=== PATIENT | male | born 1970 | race Two or more races ===

== ENCOUNTER 2020-05-20 10:58 | Emergency (ER) | payer MEDICAID, OTHER ==
[~2020-05-20] VITALS: Ht 167.6 cm; Wt 90.7 kg
[2020-05-20 11:01] VITALS: BP 125/93
[2020-05-20] MEDS ORDERED: DexAMETHasone SOD PHOS 10MG/1ML VIAL INJ IM ONE (11:45)
[2020-05-20] MEDS ORDERED: cefTRIAXone SOD 1,000 MG VL IM ONE (11:45)
== END 2020-05-20 12:31 | disposition home or self-care (01) ==
LOC: ER 10:58
DX: U07.1 COVID-19 (principal); J12.82 Pneumonia due to coronavirus disease 2019; E11.9 Type 2 diabetes mellitus without complications; F17.210 Nicotine dependence, cigarettes, uncomplicated; Z90.49 Acquired absence of other specified parts of digestive tract
CPT/HCPCS: 36415; 71045; 87426; 96372; 99284; J0696; J1100

== ENCOUNTER 2020-06-08 18:25 | Inpatient (IN) | payer MEDICAID ==
[~2020-06-08] VITALS: Ht 167.6 cm; Wt 116.8 kg
[2020-06-08] MEDS ORDERED: ACETAMINOPHEN 500 MG TAB PO ONE (18:45)
[2020-06-08 18:48] VITALS: BP 101/49
[2020-06-08 18:52] LABS: Basophils # (auto) 0.1 10 ^3/uL (0-0.2); Eosinophils # (auto) 0 10 ^3/uL (0-0.8); Eosinophils % (auto) 0.1 % (0.0-7.0); Hematocrit 39.9 % (41.0-53.0); Hemoglobin 13.2 g/dL (13.5-17.5); Lymphocytes # (auto) 1.3 10 ^3/uL (0.4-5.4); Mean Corpuscular Hemoglobin 28.2 pg (28.0-32.0); Mean Corpuscular Hgb Conc. 33.1 g/dL (32.0-36.0); Mean Corpuscular Volume 85.2 fL (80.0-100.0); Monocytes # (auto) 0.7 10 ^3/uL (0-1.3); Monocytes % (auto) 6.7 % (0.0-12.0); Neutrophils # (auto) 7.8 10 ^3/uL (1.6-8.6); Neutrophils % (auto) 79.2 % (37.0-80.0); Nucleated Red Blood Cells % 0.1 %; Platelet Count (auto) 284 10^3/uL (140-450); Red Blood Cells 4.68 10^6/uL (4.5-5.90); Red Cell Distribution Width 15.2 % (11.8-14.3); White Blood Cell 9.8 10^3/uL (4.4-10.8)
[2020-06-08] MEDS ORDERED: LORazepam 2MG/ML-1ML VIAL ONE (18:57)
[2020-06-08] MEDS ORDERED: LORazepam 2MG/ML-1ML VIAL IV ONE (19:00)
[2020-06-08 19:08] LABS: INR 1.12 (0.9-1.15); Partial Thromboplastin Time 29.9 sec (23.0-31.2)
[2020-06-08 19:10] LABS: Albumin 2.5 g/dL (3.4-5.0); Calcium 8.4 mg/dL (8.5-10.1); Potassium 4.7 mmol/L (3.5-5.1)
[2020-06-08 19:14] LABS: BUN/Creatinine Ratio 12.4; Bilirubin, Total 0.7 mg/dL (0.2-1.0); Total Protein 8.6 g/dL (6.4-8.2)
[2020-06-08] MEDS ORDERED: IOHEXOL 350 MG/ML 100ML IJ ONE (19:37)
[2020-06-08 19:40] LABS: Lactic Acid w/Reflex 2.7 mmol/L (0.4-2.0)
[2020-06-08] MEDS ORDERED: SUCCINYLCHOLINE CHLORIDE 20 MG/ML 10ML VIAL IV ONE ×3 (19:52→20:10)
[2020-06-08] MEDS ORDERED: ETOMIDATE (2MG/ML) 20ML VIAL IV ONE ×3 (19:52→20:09)
[2020-06-08] MEDS ORDERED: MIDAZOLAM DRIP 50 mg/50mL 50 ML IV ONE (20:16)
[2020-06-08 20:17] VITALS: BP 176/104
[2020-06-08] MEDS ORDERED: PROPOFOL 100 ML IV ONE (20:20)
[2020-06-08] MEDS: PROPOFOL 100 ML IV SCH (20:30)
[2020-06-08] MEDS: MIDAZOLAM DRIP 50 mg/50mL 50 ML IV SCH (20:45)
[2020-06-08] MEDS ORDERED: PROPOFOL 100 ML IV SCH (20:45)
[2020-06-08] MEDS ORDERED: KETOROLAC TROMETH 30 MG/ML 1ML VIAL IV ONE (21:00)
[2020-06-08] MEDS: NOREPINEPHRINE 8 MG/250ML KIT 250 ML IV SCH (21:30)
[2020-06-08] MEDS ORDERED: DEXTROSE (50%) 50ML SYRG IV PRN (21:30)
[2020-06-08] MEDS ORDERED: ONDANSETRON HCL 4 MG/2 ML VIAL IV PRN (21:30)
[2020-06-08] MEDS ORDERED: NITROGLYCERIN 0.4 MG SL TAB SL PRN (21:30)
[2020-06-08] MEDS ORDERED: MORPHINE SULF INJ 2 MG/ML SYRINGE 1ML IV PRN (21:30)
[2020-06-08] MEDS ORDERED: SODIUM CHLORIDE 0.9% 1,000 ML IV ONE (21:30)
[2020-06-08 21:45] VITALS: BP 86/32
[2020-06-08] MEDS ORDERED: PIPERACILLIN-TAZOB 3.375GM 100 ML IV SCH (22:15)
[2020-06-08] MEDS: ENOXAPARIN SOD 40 MG/0.4 ML SYRINGE SC SCH (22:16)
[2020-06-08] MEDS: ACETAMINOPHEN 650 mg PER 20.3 mL UD GT PRN (22:30)
[2020-06-08 22:47] VITALS: BP 90/48
[2020-06-08] MEDS: FAMOTIDINE (10MG/ML) 2ML VL IV SCH (23:39)
[2020-06-08] MEDS: PIPERACILLIN-TAZOB 3.375GM 100 ML IV SCH (23:39)
[2020-06-08] MEDS: InsuLIN REG 1unit/0.01ml Soln (100units/ml) SC SCH (23:49)
[2020-06-08] MEDS: ACCU-CHEK COMFORT CURVE STRIP VI SCH (23:49)
[2020-06-09 02:14] VITALS: BP 100/52
[2020-06-09] MEDS: ACCU-CHEK COMFORT CURVE STRIP VI SCH ×4 (05:50→23:48)
[2020-06-09] MEDS: InsuLIN REG 1unit/0.01ml Soln (100units/ml) SC SCH ×4 (05:58→23:47)
[2020-06-09] MEDS: PIPERACILLIN-TAZOB 3.375GM 100 ML IV SCH ×4 (06:08→23:00)
[2020-06-09 06:37] LABS: Basophils # (auto) 0.1 10 ^3/uL (0-0.2); Eosinophils # (auto) 0 10 ^3/uL (0-0.8); Eosinophils % (auto) 0.4 % (0.0-7.0); Hematocrit 36.8 % (41.0-53.0); Hemoglobin 12.4 g/dL (13.5-17.5); Lymphocytes % (auto) 18.2 % (10.0-50.0); Mean Corpuscular Hemoglobin 28.7 pg (28.0-32.0); Mean Corpuscular Hgb Conc. 33.6 g/dL (32.0-36.0); Mean Corpuscular Volume 85.3 fL (80.0-100.0); Monocytes # (auto) 1.1 10 ^3/uL (0-1.3); Monocytes % (auto) 9.8 % (0.0-12.0); Neutrophils # (auto) 7.7 10 ^3/uL (1.6-8.6); Neutrophils % (auto) 70.6 % (37.0-80.0); Nucleated Red Blood Cells % 0.5 %; Platelet Count (auto) 300 10^3/uL (140-450); Red Blood Cells 4.32 10^6/uL (4.5-5.90); Red Cell Distribution Width 15.8 % (11.8-14.3); White Blood Cell 10.9 10^3/uL (4.4-10.8)
[2020-06-09 06:48] VITALS: BP 109/51
[2020-06-09 06:50] LABS: INR 1.11 (0.9-1.15)
[2020-06-09 06:52] LABS: Potassium 4.5 mmol/L (3.5-5.1)
[2020-06-09 07:00] LABS: Albumin 2.3 g/dL (3.4-5.0); BUN/Creatinine Ratio 16.3; Bilirubin, Total 0.7 mg/dL (0.2-1.0); Calcium 7.9 mg/dL (8.5-10.1); Total Protein 7.8 g/dL (6.4-8.2)
[2020-06-09] MEDS ORDERED: NOREPINEPHRINE 8 MG/250ML KIT 250 ML IV ONE (07:52)
[2020-06-09] MEDS ORDERED: MIDAZOLAM HCL 0 ML IV ONE (07:53)
[2020-06-09] MEDS ORDERED: MIDAZOLAM DRIP 50 mg/50mL 50 ML IV ONE (07:53)
[2020-06-09 10:11] VITALS: BP 111/50
[2020-06-09] MEDS: ENOXAPARIN SOD 40 MG/0.4 ML SYRINGE SC SCH (10:27)
[2020-06-09] MEDS: FAMOTIDINE (10MG/ML) 2ML VL IV SCH ×2 (10:27→21:16)
[2020-06-09 13:58] VITALS: BP 118/70
[2020-06-09] MEDS: ACETAMINOPHEN 650 mg PER 20.3 mL UD GT PRN (15:39)
[2020-06-09 18:20] VITALS: BP 116/67
[2020-06-09] MEDS: MIDAZOLAM DRIP 50 mg/50mL 50 ML IV SCH (19:57)
[2020-06-09] MEDS: PROPOFOL 100 ML IV SCH (19:57)
[2020-06-09] MEDS: NOREPINEPHRINE 8 MG/250ML KIT 250 ML IV SCH (21:16)
[2020-06-09 22:30] VITALS: BP 120/68
[2020-06-10 02:30] VITALS: BP 113/65
[2020-06-10] MEDS: PIPERACILLIN-TAZOB 3.375GM 100 ML IV SCH ×3 (05:09→18:24)
[2020-06-10] MEDS: InsuLIN REG 1unit/0.01ml Soln (100units/ml) SC SCH ×3 (05:54→18:52)
[2020-06-10] MEDS: ACCU-CHEK COMFORT CURVE STRIP VI SCH ×3 (05:55→18:52)
[2020-06-10 06:07] VITALS: BP 111/61
[2020-06-10] MEDS: FAMOTIDINE (10MG/ML) 2ML VL IV SCH ×2 (09:54→22:07)
[2020-06-10] MEDS: DexAMETHasone SOD PHOS 10MG/1ML VIAL INJ IV SCH (09:54)
[2020-06-10] MEDS: ZINC SULFATE 220mg CAP or TAB PO SCH (09:55)
[2020-06-10] MEDS: AZITHROMYCIN 500MG/ 250ML 250 ML IV SCH (09:55)
[2020-06-10] MEDS: CHOLECALCIFEROL (VITD3) 2,000 UNIT CAP/TAB PO SCH (09:56)
[2020-06-10] MEDS: ASCORBIC ACID 1,000 MG TAB PO SCH (09:56)
[2020-06-10 10:00] VITALS: BP 120/72
[2020-06-10] MEDS ORDERED: ENOXAPARIN SOD 60 MG/0.6 ML SYRINGE SC SCH (10:00)
[2020-06-10 13:40] VITALS: BP 110/50
[2020-06-10 15:53] LABS: Basophils # (auto) 0.1 10 ^3/uL (0-0.2); Basophils % (auto) 1.4 % (0.0-2.0); Eosinophils # (auto) 0 10 ^3/uL (0-0.8); Eosinophils % (auto) 0.1 % (0.0-7.0); Hemoglobin 12.2 g/dL (13.5-17.5); Lymphocytes # (auto) 0.4 10 ^3/uL (0.4-5.4); Lymphocytes % (auto) 7.5 % (10.0-50.0); Mean Corpuscular Hemoglobin 28.5 pg (28.0-32.0); Mean Corpuscular Hgb Conc. 32.8 g/dL (32.0-36.0); Mean Corpuscular Volume 86.7 fL (80.0-100.0); Monocytes # (auto) 0.1 10 ^3/uL (0-1.3); Monocytes % (auto) 1.8 % (0.0-12.0); Neutrophils # (auto) 5.3 10 ^3/uL (1.6-8.6); Neutrophils % (auto) 89.2 % (37.0-80.0); Platelet Count (auto) 276 10^3/uL (140-450); Red Blood Cells 4.27 10^6/uL (4.5-5.90); White Blood Cell 5.9 10^3/uL (4.4-10.8)
[2020-06-10 16:08] LABS: Calcium 8.2 mg/dL (8.5-10.1)
[2020-06-10 16:13] LABS: BUN/Creatinine Ratio 12.2; Bilirubin, Total 0.4 mg/dL (0.2-1.0); Total Protein 7.7 g/dL (6.4-8.2)
[2020-06-10] MEDS ORDERED: REMDESIVIR PER PHARMACY 0 ML IV SCH (16:30)
[2020-06-10 19:03] VITALS: BP 111/62
[2020-06-10] MEDS: MIDAZOLAM DRIP 50 mg/50mL 50 ML IV SCH (20:00)
[2020-06-10] MEDS ORDERED: REMDESIVIR 200 MG in NS 210ml LOADING DOSE ADULT IV ONE (20:30)
[2020-06-10] MEDS: PROPOFOL 100 ML IV SCH (21:00)
[2020-06-10] MEDS: ENOXAPARIN SOD 40 MG/0.4 ML SYRINGE SC SCH (22:07)
[2020-06-10 22:35] VITALS: BP 117/67
[2020-06-10] MEDS: NOREPINEPHRINE 8 MG/250ML KIT 250 ML IV SCH (23:00)
[2020-06-11] MEDS: InsuLIN REG 1unit/0.01ml Soln (100units/ml) SC SCH ×5 (00:18→23:38)
[2020-06-11] MEDS: PIPERACILLIN-TAZOB 3.375GM 100 ML IV SCH ×5 (00:18→23:03)
[2020-06-11] MEDS: ACCU-CHEK COMFORT CURVE STRIP VI SCH ×5 (00:18→23:38)
[2020-06-11 01:41] VITALS: BP 110/59
[2020-06-11] MEDS: PROPOFOL 100 ML IV SCH (02:00)
[2020-06-11 06:10] VITALS: BP 95/50
[2020-06-11 06:15] LABS: Basophils # (auto) 0.1 10 ^3/uL (0-0.2); Basophils % (auto) 1.4 % (0.0-2.0); Eosinophils # (auto) 0 10 ^3/uL (0-0.8); Eosinophils % (auto) 0.2 % (0.0-7.0); Hematocrit 35.3 % (41.0-53.0); Hemoglobin 11.6 g/dL (13.5-17.5); Lymphocytes # (auto) 0.8 10 ^3/uL (0.4-5.4); Lymphocytes % (auto) 13.9 % (10.0-50.0); Mean Corpuscular Hemoglobin 28.1 pg (28.0-32.0); Mean Corpuscular Hgb Conc. 32.9 g/dL (32.0-36.0); Mean Corpuscular Volume 85.6 fL (80.0-100.0); Monocytes # (auto) 0.5 10 ^3/uL (0-1.3); Monocytes % (auto) 9.1 % (0.0-12.0); Neutrophils # (auto) 4.4 10 ^3/uL (1.6-8.6); Neutrophils % (auto) 75.4 % (37.0-80.0); Nucleated Red Blood Cells % 0.2 %; Platelet Count (auto) 266 10^3/uL (140-450); Red Blood Cells 4.12 10^6/uL (4.5-5.90); Red Cell Distribution Width 15.6 % (11.8-14.3); White Blood Cell 5.8 10^3/uL (4.4-10.8)
[2020-06-11 06:38] LABS: Albumin 1.9 g/dL (3.4-5.0); BUN/Creatinine Ratio 13.5; Bilirubin, Direct 0.2 mg/dL (0-0.2); Calcium 8.4 mg/dL (8.5-10.1); Potassium 4.4 mmol/L (3.5-5.1)
[2020-06-11 06:43] LABS: Bilirubin, Total 0.3 mg/dL (0.2-1.0)
[2020-06-11 10:10] VITALS: BP 98/55
[2020-06-11] MEDS: DexAMETHasone SOD PHOS 10MG/1ML VIAL INJ IV SCH (10:19)
[2020-06-11] MEDS: ZINC SULFATE 220mg CAP or TAB PO SCH (10:20)
[2020-06-11] MEDS: ASPirin 81 mg TAB PO SCH (10:20)
[2020-06-11] MEDS: AZITHROMYCIN 500MG/ 250ML 250 ML IV SCH (10:20)
[2020-06-11] MEDS: ASCORBIC ACID 1,000 MG TAB PO SCH (10:20)
[2020-06-11] MEDS: CHOLECALCIFEROL (VITD3) 2,000 UNIT CAP/TAB PO SCH (10:21)
[2020-06-11] MEDS: ENOXAPARIN SOD 40 MG/0.4 ML SYRINGE SC SCH ×2 (10:21→22:20)
[2020-06-11] MEDS: FAMOTIDINE (10MG/ML) 2ML VL IV SCH ×2 (10:30→22:20)
[2020-06-11 14:21] VITALS: BP 93/52
[2020-06-11] MEDS ORDERED: REMDESIVIR 100mg 100 MG in SODIUM CHL 0.9% 230 ML IV SCH (15:00)
[2020-06-11 18:57] VITALS: BP 106/59
[2020-06-11] MEDS: MIDAZOLAM DRIP 50 mg/50mL 50 ML IV SCH (19:48)
[2020-06-11] MEDS: NOREPINEPHRINE 8 MG/250ML KIT 250 ML IV SCH (21:01)
[2020-06-11] MEDS: SODIUM CHLOR 0.9% PF (SALINE LOCK) 10ML VIAL/SYR IV SCH (22:06)
[2020-06-11 22:32] VITALS: BP 120/61
[2020-06-12] VITALS (11 sets, daily range): BP systolic 98–111; BP diastolic 56–65
[2020-06-12] MEDS: PIPERACILLIN-TAZOB 3.375GM 100 ML IV SCH ×4 (05:12→23:00)
[2020-06-12] MEDS: InsuLIN REG 1unit/0.01ml Soln (100units/ml) SC SCH ×4 (05:26→23:57)
[2020-06-12] MEDS: ACCU-CHEK COMFORT CURVE STRIP VI SCH ×4 (05:31→23:56)
[2020-06-12 06:21] LABS: Basophils # (auto) 0.1 10 ^3/uL (0-0.2); Basophils % (auto) 1.7 % (0.0-2.0); Eosinophils # (auto) 0 10 ^3/uL (0-0.8); Eosinophils % (auto) 0.2 % (0.0-7.0); Hematocrit 35.3 % (41.0-53.0); Lymphocytes # (auto) 1.1 10 ^3/uL (0.4-5.4); Lymphocytes % (auto) 21.4 % (10.0-50.0); Mean Corpuscular Hgb Conc. 34.1 g/dL (32.0-36.0); Monocytes # (auto) 0.5 10 ^3/uL (0-1.3); Monocytes % (auto) 9.1 % (0.0-12.0); Neutrophils # (auto) 3.6 10 ^3/uL (1.6-8.6); Neutrophils % (auto) 67.6 % (37.0-80.0); Nucleated Red Blood Cells % 0.4 %; Platelet Count (auto) 282 10^3/uL (140-450); Red Blood Cells 4.15 10^6/uL (4.5-5.90); Red Cell Distribution Width 15.8 % (11.8-14.3); White Blood Cell 5.3 10^3/uL (4.4-10.8)
[2020-06-12 06:32] LABS: Calcium 8.4 mg/dL (8.5-10.1)
[2020-06-12 06:35] LABS: BUN/Creatinine Ratio 21.4; Potassium 4.3 mmol/L (3.5-5.1)
[2020-06-12 06:46] LABS: Bilirubin, Direct 0.2 mg/dL (0-0.2); Bilirubin, Total 0.4 mg/dL (0.2-1.0); Total Protein 6.6 g/dL (6.4-8.2)
[2020-06-12] MEDS: SODIUM CHLOR 0.9% PF (SALINE LOCK) 10ML VIAL/SYR IV SCH ×2 (09:58→21:53)
[2020-06-12] MEDS: AZITHROMYCIN 500MG/ 250ML 250 ML IV SCH (09:58)
[2020-06-12] MEDS: FAMOTIDINE (10MG/ML) 2ML VL IV SCH ×2 (09:58→21:52)
[2020-06-12] MEDS: DexAMETHasone SOD PHOS 10MG/1ML VIAL INJ IV SCH (09:58)
[2020-06-12] MEDS: ZINC SULFATE 220mg CAP or TAB PO SCH (09:59)
[2020-06-12] MEDS: ASCORBIC ACID 1,000 MG TAB PO SCH (09:59)
[2020-06-12] MEDS: ASPirin 81 mg TAB PO SCH (09:59)
[2020-06-12] MEDS: CHOLECALCIFEROL (VITD3) 2,000 UNIT CAP/TAB PO SCH (09:59)
[2020-06-12] MEDS: ENOXAPARIN SOD 40 MG/0.4 ML SYRINGE SC SCH ×2 (09:59→21:53)
[2020-06-12] MEDS ORDERED: FUROSEMIDE 20 MG/2 ML VIAL IV ONE (12:45)
[2020-06-12] MEDS: MIDAZOLAM DRIP 50 mg/50mL 50 ML IV SCH (20:06)
[2020-06-12] MEDS: PROPOFOL 100 ML IV SCH (20:47)
[2020-06-12] MEDS: NOREPINEPHRINE 8 MG/250ML KIT 250 ML IV SCH (21:52)
[2020-06-13] VITALS (66 sets, daily range): BP systolic 73–135; BP diastolic 34–76
[2020-06-13] MEDS: MIDAZOLAM DRIP 50 mg/50mL 50 ML IV SCH ×3 (01:30→18:18)
[2020-06-13] MEDS: PROPOFOL 100 ML IV SCH ×5 (02:00→21:45)
[2020-06-13] MEDS: InsuLIN REG 1unit/0.01ml Soln (100units/ml) SC SCH ×3 (06:00→17:00)
[2020-06-13] MEDS: ACCU-CHEK COMFORT CURVE STRIP VI SCH ×3 (06:00→17:00)
[2020-06-13] MEDS: PIPERACILLIN-TAZOB 3.375GM 100 ML IV SCH ×4 (06:00→22:00)
[2020-06-13 06:17] LABS: Hematocrit 37.1 % (41.0-53.0); Hemoglobin 12.2 g/dL (13.5-17.5); Mean Corpuscular Hemoglobin 28.3 pg (28.0-32.0); Mean Corpuscular Hgb Conc. 32.8 g/dL (32.0-36.0); Mean Corpuscular Volume 86.2 fL (80.0-100.0); Platelet Count (auto) 294 10^3/uL (140-450); Red Blood Cells 4.31 10^6/uL (4.5-5.90); Red Cell Distribution Width 15.9 % (11.8-14.3); White Blood Cell 5.8 10^3/uL (4.4-10.8)
[2020-06-13 06:27] LABS: Band Neutrophils % (manual) 0; Basophils % (manual) 0 (0.0-2.0); Blast Cells 0; Myelocytes % 0; Promyelocytes % 0; Reactive Lymphocytes 0
[2020-06-13] MEDS: NOREPINEPHRINE 8 MG/250ML KIT 250 ML IV SCH (08:00)
[2020-06-13 08:42] LABS: Albumin 2.2 g/dL (3.4-5.0); Calcium 8.5 mg/dL (8.5-10.1)
[2020-06-13 08:45] LABS: BUN/Creatinine Ratio 21.3; Bilirubin, Direct 0.2 mg/dL (0-0.2); Bilirubin, Total 0.5 mg/dL (0.2-1.0); Total Protein 7.4 g/dL (6.4-8.2)
[2020-06-13 09:59] LABS: Eosinophils % (manual) 2 (0-7); Lymphocytes % (manual) 22 (10.0-50.0); Metamyelocytes % 2; Monocytes % (manual) 10 (0-12)
[2020-06-13] MEDS: DexAMETHasone SOD PHOS 10MG/1ML VIAL INJ IV SCH (10:11)
[2020-06-13] MEDS: FAMOTIDINE (10MG/ML) 2ML VL IV SCH (10:11)
[2020-06-13] MEDS: SODIUM CHLOR 0.9% PF (SALINE LOCK) 10ML VIAL/SYR IV SCH ×2 (10:12→22:03)
[2020-06-13] MEDS: ZINC SULFATE 220mg CAP or TAB PO SCH (10:13)
[2020-06-13] MEDS: ASPirin 81 mg TAB PO SCH (10:13)
[2020-06-13] MEDS: AZITHROMYCIN 500MG/ 250ML 250 ML IV SCH (10:13)
[2020-06-13] MEDS: ENOXAPARIN SOD 40 MG/0.4 ML SYRINGE SC SCH ×2 (10:14→22:03)
[2020-06-13] MEDS: CHOLECALCIFEROL (VITD3) 2,000 UNIT CAP/TAB PO SCH (10:14)
[2020-06-13] MEDS: ASCORBIC ACID 1,000 MG TAB PO SCH (10:14)
[2020-06-13] MEDS: PANTOPRAZOLE 40 MG/10 ML VIAL INJ IV SCH (17:08)
[2020-06-14] VITALS (72 sets, daily range): BP systolic 96–139; BP diastolic 54–83
[2020-06-14] MEDS: PROPOFOL 100 ML IV SCH ×8 (00:34→23:59)
[2020-06-14] MEDS: NOREPINEPHRINE 8 MG/250ML KIT 250 ML IV SCH (03:14)
[2020-06-14 04:29] LABS: Basophils # (auto) 0 10 ^3/uL (0-0.2); Basophils % (auto) 0.9 % (0.0-2.0); Eosinophils # (auto) 0 10 ^3/uL (0-0.8); Eosinophils % (auto) 0.9 % (0.0-7.0); Hematocrit 39.6 % (41.0-53.0); Lymphocytes # (auto) 1.5 10 ^3/uL (0.4-5.4); Lymphocytes % (auto) 27.5 % (10.0-50.0); Mean Corpuscular Hemoglobin 27.7 pg (28.0-32.0); Mean Corpuscular Hgb Conc. 32.8 g/dL (32.0-36.0); Mean Corpuscular Volume 84.6 fL (80.0-100.0); Monocytes # (auto) 0.5 10 ^3/uL (0-1.3); Monocytes % (auto) 10.1 % (0.0-12.0); Neutrophils # (auto) 3.2 10 ^3/uL (1.6-8.6); Neutrophils % (auto) 60.6 % (37.0-80.0); Nucleated Red Blood Cells % 0.2 %; Platelet Count (auto) 351 10^3/uL (140-450); Red Blood Cells 4.68 10^6/uL (4.5-5.90); Red Cell Distribution Width 15.7 % (11.8-14.3); White Blood Cell 5.3 10^3/uL (4.4-10.8)
[2020-06-14 04:48] LABS: Albumin 2.1 g/dL (3.4-5.0); Calcium 8.3 mg/dL (8.5-10.1)
[2020-06-14 04:51] LABS: Bilirubin, Direct 0.2 mg/dL (0-0.2); Bilirubin, Total 0.4 mg/dL (0.2-1.0); Total Protein 7.2 g/dL (6.4-8.2)
[2020-06-14] MEDS: PIPERACILLIN-TAZOB 3.375GM 100 ML IV SCH ×4 (05:55→23:53)
[2020-06-14] MEDS: InsuLIN REG 1unit/0.01ml Soln (100units/ml) SC SCH ×4 (05:57→16:50)
[2020-06-14] MEDS: ACCU-CHEK COMFORT CURVE STRIP VI SCH ×4 (05:58→16:50)
[2020-06-14] MEDS: DexAMETHasone SOD PHOS 10MG/1ML VIAL INJ IV SCH (09:58)
[2020-06-14] MEDS: ZINC SULFATE 220mg CAP or TAB PO SCH (09:59)
[2020-06-14] MEDS: CHOLECALCIFEROL (VITD3) 2,000 UNIT CAP/TAB PO SCH (09:59)
[2020-06-14] MEDS: SODIUM CHLOR 0.9% PF (SALINE LOCK) 10ML VIAL/SYR IV SCH ×2 (09:59→22:00)
[2020-06-14] MEDS: ASCORBIC ACID 1,000 MG TAB PO SCH (09:59)
[2020-06-14] MEDS: ASPirin 81 mg TAB PO SCH (09:59)
[2020-06-14] MEDS: PANTOPRAZOLE 40 MG/10 ML VIAL INJ IV SCH (09:59)
[2020-06-14] MEDS: AZITHROMYCIN 500MG/ 250ML 250 ML IV SCH (09:59)
[2020-06-14] MEDS: ENOXAPARIN SOD 40 MG/0.4 ML SYRINGE SC SCH ×2 (10:00→22:00)
[2020-06-14] MEDS: FUROSEMIDE 40 MG/4 ML VIAL IV SCH (11:26)
[2020-06-14] MEDS: MIDAZOLAM DRIP 50 mg/50mL 50 ML IV SCH ×2 (16:38→22:21)
[2020-06-15] VITALS (72 sets, daily range): BP systolic 102–144; BP diastolic 54–78
[2020-06-15] MEDS: InsuLIN REG 1unit/0.01ml Soln (100units/ml) SC SCH ×5 (00:01→23:19)
[2020-06-15] MEDS: ACCU-CHEK COMFORT CURVE STRIP VI SCH ×5 (00:02→23:25)
[2020-06-15] MEDS: PROPOFOL 100 ML IV SCH ×3 (02:35→15:48)
[2020-06-15 04:46] LABS: Basophils # (auto) 0 10 ^3/uL (0-0.2); Basophils % (auto) 0.6 % (0.0-2.0); Eosinophils # (auto) 0.1 10 ^3/uL (0-0.8); Eosinophils % (auto) 1.4 % (0.0-7.0); Hemoglobin 12.9 g/dL (13.5-17.5); Lymphocytes # (auto) 1.5 10 ^3/uL (0.4-5.4); Lymphocytes % (auto) 28.1 % (10.0-50.0); Mean Corpuscular Hemoglobin 27.8 pg (28.0-32.0); Mean Corpuscular Hgb Conc. 33.1 g/dL (32.0-36.0); Monocytes # (auto) 0.6 10 ^3/uL (0-1.3); Monocytes % (auto) 11.9 % (0.0-12.0); Neutrophils # (auto) 3.1 10 ^3/uL (1.6-8.6); Nucleated Red Blood Cells % 0.1 %; Platelet Count (auto) 338 10^3/uL (140-450); Red Blood Cells 4.64 10^6/uL (4.5-5.90); Red Cell Distribution Width 15.9 % (11.8-14.3); White Blood Cell 5.3 10^3/uL (4.4-10.8)
[2020-06-15 05:07] LABS: Albumin 2.2 g/dL (3.4-5.0); Calcium 8.5 mg/dL (8.5-10.1); Potassium 3.6 mmol/L (3.5-5.1)
[2020-06-15 05:10] LABS: BUN/Creatinine Ratio 24.1; Bilirubin, Direct 0.2 mg/dL (0-0.2); Bilirubin, Total 0.4 mg/dL (0.2-1.0); Total Protein 7.1 g/dL (6.4-8.2)
[2020-06-15] MEDS: MIDAZOLAM DRIP 50 mg/50mL 50 ML IV SCH ×4 (05:10→18:31)
[2020-06-15] MEDS: PIPERACILLIN-TAZOB 3.375GM 100 ML IV SCH ×4 (05:15→22:56)
[2020-06-15 07:38] LABS: Magnesium 1.7 mg/dL (1.6-2.6)
[2020-06-15 07:40] LABS: Phosphorus 3.5 mg/dL (2.5-4.90)
[2020-06-15] MEDS: DexAMETHasone SOD PHOS 10MG/1ML VIAL INJ IV SCH (09:00)
[2020-06-15] MEDS: ENOXAPARIN SOD 40 MG/0.4 ML SYRINGE SC SCH ×2 (09:00→21:37)
[2020-06-15] MEDS: ZINC SULFATE 220mg CAP or TAB PO SCH (09:00)
[2020-06-15] MEDS: PANTOPRAZOLE 40 MG/10 ML VIAL INJ IV SCH (09:00)
[2020-06-15] MEDS: ASCORBIC ACID 1,000 MG TAB PO SCH (09:00)
[2020-06-15] MEDS: SODIUM CHLOR 0.9% PF (SALINE LOCK) 10ML VIAL/SYR IV SCH ×2 (09:00→20:52)
[2020-06-15] MEDS: ASPirin 81 mg TAB PO SCH (09:00)
[2020-06-15] MEDS: AZITHROMYCIN 500MG/ 250ML 250 ML IV SCH (09:00)
[2020-06-15] MEDS: FUROSEMIDE 40 MG/4 ML VIAL IV SCH (09:00)
[2020-06-15] MEDS: CHOLECALCIFEROL (VITD3) 2,000 UNIT CAP/TAB PO SCH (09:00)
[2020-06-15] MEDS: NOREPINEPHRINE 8 MG/250ML KIT 250 ML IV SCH (20:52)
[2020-06-15] MEDS ORDERED: PIPERACILLIN-TAZOB 3.375GM 100 ML IV ONE (21:01)
[2020-06-16] VITALS (81 sets, daily range): BP systolic 87–125; BP diastolic 46–62
[2020-06-16] MEDS: PIPERACILLIN-TAZOB 3.375GM 100 ML IV SCH ×4 (05:23→22:52)
[2020-06-16] MEDS: InsuLIN REG 1unit/0.01ml Soln (100units/ml) SC SCH ×4 (05:47→23:22)
[2020-06-16] MEDS: ACCU-CHEK COMFORT CURVE STRIP VI SCH ×4 (05:50→23:24)
[2020-06-16] MEDS: PROPOFOL 100 ML IV SCH (08:30)
[2020-06-16 09:07] LABS: Basophils # (auto) 0.1 10 ^3/uL (0-0.2); Basophils % (auto) 0.9 % (0.0-2.0); Eosinophils # (auto) 0.2 10 ^3/uL (0-0.8); Eosinophils % (auto) 3.4 % (0.0-7.0); Hematocrit 38.9 % (41.0-53.0); Hemoglobin 12.8 g/dL (13.5-17.5); Lymphocytes # (auto) 1.6 10 ^3/uL (0.4-5.4); Lymphocytes % (auto) 25.5 % (10.0-50.0); Mean Corpuscular Hemoglobin 27.9 pg (28.0-32.0); Mean Corpuscular Hgb Conc. 32.9 g/dL (32.0-36.0); Mean Corpuscular Volume 84.7 fL (80.0-100.0); Monocytes # (auto) 0.5 10 ^3/uL (0-1.3); Monocytes % (auto) 8.2 % (0.0-12.0); Neutrophils # (auto) 3.9 10 ^3/uL (1.6-8.6); Nucleated Red Blood Cells % 0.1 %; Platelet Count (auto) 318 10^3/uL (140-450); Red Blood Cells 4.59 10^6/uL (4.5-5.90); Red Cell Distribution Width 15.7 % (11.8-14.3); White Blood Cell 6.3 10^3/uL (4.4-10.8)
[2020-06-16] MEDS: FUROSEMIDE 40 MG/4 ML VIAL IV SCH (09:20)
[2020-06-16] MEDS: ZINC SULFATE 220mg CAP or TAB PO SCH (09:20)
[2020-06-16] MEDS: AZITHROMYCIN 500MG/ 250ML 250 ML IV SCH (09:20)
[2020-06-16] MEDS: ENOXAPARIN SOD 40 MG/0.4 ML SYRINGE SC SCH ×2 (09:20→21:30)
[2020-06-16] MEDS: DexAMETHasone SOD PHOS 10MG/1ML VIAL INJ IV SCH (09:20)
[2020-06-16] MEDS: PANTOPRAZOLE 40 MG/10 ML VIAL INJ IV SCH (09:20)
[2020-06-16] MEDS: ASPirin 81 mg TAB PO SCH (09:20)
[2020-06-16] MEDS: CHOLECALCIFEROL (VITD3) 2,000 UNIT CAP/TAB PO SCH (09:20)
[2020-06-16] MEDS: SODIUM CHLOR 0.9% PF (SALINE LOCK) 10ML VIAL/SYR IV SCH ×2 (09:20→21:15)
[2020-06-16] MEDS: ASCORBIC ACID 1,000 MG TAB PO SCH (09:20)
[2020-06-16 09:23] LABS: Calcium 8.6 mg/dL (8.5-10.1); Magnesium 1.8 mg/dL (1.6-2.6); Potassium 3.1 mmol/L (3.5-5.1)
[2020-06-16 09:27] LABS: BUN/Creatinine Ratio 29.7; Phosphorus 2.4 mg/dL (2.5-4.90)
[2020-06-16] MEDS: POTASSIUM CHL 20MEQ/100ML 100 ML IV SCH ×2 (13:30→15:45)
[2020-06-16] MEDS: MIDAZOLAM DRIP 50 mg/50mL 50 ML IV SCH (13:50)
[2020-06-16] MEDS: NOREPINEPHRINE 8 MG/250ML KIT 250 ML IV SCH (21:15)
[2020-06-17] VITALS (83 sets, daily range): BP systolic 86–155; BP diastolic 44–94
[2020-06-17 04:46] LABS: Basophils # (auto) 0 10 ^3/uL (0-0.2); Basophils % (auto) 0.3 % (0.0-2.0); Eosinophils # (auto) 0 10 ^3/uL (0-0.8); Eosinophils % (auto) 0.4 % (0.0-7.0); Hematocrit 37.7 % (41.0-53.0); Hemoglobin 12.7 g/dL (13.5-17.5); Lymphocytes # (auto) 1.3 10 ^3/uL (0.4-5.4); Lymphocytes % (auto) 26.6 % (10.0-50.0); Mean Corpuscular Hemoglobin 28.5 pg (28.0-32.0); Mean Corpuscular Hgb Conc. 33.7 g/dL (32.0-36.0); Mean Corpuscular Volume 84.5 fL (80.0-100.0); Monocytes # (auto) 0.4 10 ^3/uL (0-1.3); Monocytes % (auto) 8.5 % (0.0-12.0); Neutrophils # (auto) 3.2 10 ^3/uL (1.6-8.6); Neutrophils % (auto) 64.2 % (37.0-80.0); Nucleated Red Blood Cells % 0.1 %; Platelet Count (auto) 318 10^3/uL (140-450); Red Blood Cells 4.47 10^6/uL (4.5-5.90)
[2020-06-17 05:01] LABS: Albumin 2.2 g/dL (3.4-5.0); Calcium 8.7 mg/dL (8.5-10.1); Magnesium 1.8 mg/dL (1.6-2.6); Potassium 3.5 mmol/L (3.5-5.1)
[2020-06-17 05:05] LABS: BUN/Creatinine Ratio 31.4; Bilirubin, Total 0.7 mg/dL (0.2-1.0); Phosphorus 2.6 mg/dL (2.5-4.90); Total Protein 6.8 g/dL (6.4-8.2)
[2020-06-17] MEDS: InsuLIN REG 1unit/0.01ml Soln (100units/ml) SC SCH ×3 (05:05→16:30)
[2020-06-17] MEDS: PIPERACILLIN-TAZOB 3.375GM 100 ML IV SCH ×4 (05:07→23:29)
[2020-06-17] MEDS: ACCU-CHEK COMFORT CURVE STRIP VI SCH ×3 (05:07→16:30)
[2020-06-17] MEDS: ENOXAPARIN SOD 40 MG/0.4 ML SYRINGE SC SCH ×2 (09:15→21:02)
[2020-06-17] MEDS: SODIUM CHLOR 0.9% PF (SALINE LOCK) 10ML VIAL/SYR IV SCH ×2 (09:15→19:45)
[2020-06-17] MEDS: DexAMETHasone SOD PHOS 10MG/1ML VIAL INJ IV SCH (09:15)
[2020-06-17] MEDS: ASCORBIC ACID 1,000 MG TAB PO SCH (09:15)
[2020-06-17] MEDS: PANTOPRAZOLE 40 MG/10 ML VIAL INJ IV SCH (09:15)
[2020-06-17] MEDS: ASPirin 81 mg TAB PO SCH (09:15)
[2020-06-17] MEDS: FUROSEMIDE 40 MG/4 ML VIAL IV SCH (09:15)
[2020-06-17] MEDS: AZITHROMYCIN 500MG/ 250ML 250 ML IV SCH (09:15)
[2020-06-17] MEDS: ZINC SULFATE 220mg CAP or TAB PO SCH (09:15)
[2020-06-17] MEDS: CHOLECALCIFEROL (VITD3) 2,000 UNIT CAP/TAB PO SCH (09:15)
[2020-06-17] MEDS: PROPOFOL 100 ML IV SCH ×2 (11:18→16:28)
[2020-06-17] MEDS: MIDAZOLAM DRIP 50 mg/50mL 50 ML IV SCH ×2 (12:45→18:42)
[2020-06-17] MEDS ORDERED: ARTIFICIAL TEARS 15ml EACHEYE ONE (14:30)
[2020-06-17] MEDS: NOREPINEPHRINE 8 MG/250ML KIT 250 ML IV SCH (19:44)
[2020-06-18] VITALS (104 sets, daily range): BP systolic 96–134; BP diastolic 38–72
[2020-06-18] MEDS: InsuLIN REG 1unit/0.01ml Soln (100units/ml) SC SCH ×5 (00:09→23:49)
[2020-06-18 04:36] LABS: Basophils # (auto) 0 10 ^3/uL (0-0.2); Basophils % (auto) 0.7 % (0.0-2.0); Eosinophils # (auto) 0 10 ^3/uL (0-0.8); Eosinophils % (auto) 0.6 % (0.0-7.0); Hematocrit 39.1 % (41.0-53.0); Hemoglobin 12.9 g/dL (13.5-17.5); Lymphocytes # (auto) 1.8 10 ^3/uL (0.4-5.4); Lymphocytes % (auto) 31.9 % (10.0-50.0); Mean Corpuscular Hemoglobin 27.9 pg (28.0-32.0); Mean Corpuscular Volume 84.6 fL (80.0-100.0); Monocytes # (auto) 0.6 10 ^3/uL (0-1.3); Monocytes % (auto) 10.4 % (0.0-12.0); Neutrophils # (auto) 3.2 10 ^3/uL (1.6-8.6); Neutrophils % (auto) 56.4 % (37.0-80.0); Nucleated Red Blood Cells % 0.1 %; Platelet Count (auto) 351 10^3/uL (140-450); Red Blood Cells 4.62 10^6/uL (4.5-5.90); Red Cell Distribution Width 15.8 % (11.8-14.3); White Blood Cell 5.6 10^3/uL (4.4-10.8)
[2020-06-18 05:00] LABS: Albumin 2.3 g/dL (3.4-5.0); BUN/Creatinine Ratio 24.7; Bilirubin, Total 0.7 mg/dL (0.2-1.0); Calcium 8.3 mg/dL (8.5-10.1); Magnesium 1.7 mg/dL (1.6-2.6); Phosphorus 2.3 mg/dL (2.5-4.90); Total Protein 6.9 g/dL (6.4-8.2)
[2020-06-18] MEDS: POTASSIUM CHL 20MEQ/100ML 100 ML IV SCH ×2 (05:15→09:15)
[2020-06-18] MEDS: PIPERACILLIN-TAZOB 3.375GM 100 ML IV SCH ×4 (05:53→23:48)
[2020-06-18] MEDS: ACCU-CHEK COMFORT CURVE STRIP VI SCH ×5 (06:00→23:57)
[2020-06-18] MEDS: MIDAZOLAM DRIP 50 mg/50mL 50 ML IV SCH ×2 (08:15→18:08)
[2020-06-18] MEDS: POTASSIUM EFFERVESENT TAB 25 MEQ GT SCH (10:10)
[2020-06-18] MEDS: DexAMETHasone SOD PHOS 10MG/1ML VIAL INJ IV SCH (10:10)
[2020-06-18] MEDS: PANTOPRAZOLE 40 MG/10 ML VIAL INJ IV SCH (10:11)
[2020-06-18] MEDS: FUROSEMIDE 40 MG/4 ML VIAL IV SCH (10:11)
[2020-06-18] MEDS: AZITHROMYCIN 500MG/ 250ML 250 ML IV SCH (10:11)
[2020-06-18] MEDS: SODIUM CHLOR 0.9% PF (SALINE LOCK) 10ML VIAL/SYR IV SCH ×2 (10:11→20:00)
[2020-06-18] MEDS: CHOLECALCIFEROL (VITD3) 2,000 UNIT CAP/TAB PO SCH (10:12)
[2020-06-18] MEDS: ZINC SULFATE 220mg CAP or TAB PO SCH (10:12)
[2020-06-18] MEDS: ASPirin 81 mg TAB PO SCH (10:12)
[2020-06-18] MEDS: ASCORBIC ACID 1,000 MG TAB PO SCH (10:12)
[2020-06-18] MEDS: ENOXAPARIN SOD 40 MG/0.4 ML SYRINGE SC SCH ×2 (10:13→21:27)
[2020-06-18] MEDS: INSULIN LANTUS (GLARGINE) 1 /0.01ml (100units/ml) SC SCH (11:10)
[2020-06-18] MEDS ORDERED: FUROSEMIDE 40 MG/4 ML VIAL IV ONE (15:30)
[2020-06-18] MEDS: PROPOFOL 100 ML IV SCH (18:07)
[2020-06-18] MEDS: NOREPINEPHRINE 8 MG/250ML KIT 250 ML IV SCH (19:48)
[2020-06-19] VITALS (96 sets, daily range): BP systolic 92–142; BP diastolic 59–78
[2020-06-19] MEDS: PIPERACILLIN-TAZOB 3.375GM 100 ML IV SCH ×3 (05:18→17:29)
[2020-06-19 05:20] LABS: Basophils # (auto) 0 10 ^3/uL (0-0.2); Basophils % (auto) 0.6 % (0.0-2.0); Eosinophils # (auto) 0.1 10 ^3/uL (0-0.8); Hemoglobin 13.2 g/dL (13.5-17.5); Lymphocytes # (auto) 2.2 10 ^3/uL (0.4-5.4); Lymphocytes % (auto) 35.3 % (10.0-50.0); Mean Corpuscular Hemoglobin 27.9 pg (28.0-32.0); Mean Corpuscular Hgb Conc. 32.9 g/dL (32.0-36.0); Mean Corpuscular Volume 84.9 fL (80.0-100.0); Monocytes # (auto) 0.8 10 ^3/uL (0-1.3); Monocytes % (auto) 12.2 % (0.0-12.0); Neutrophils # (auto) 3.2 10 ^3/uL (1.6-8.6); Neutrophils % (auto) 50.9 % (37.0-80.0); Nucleated Red Blood Cells % 0.1 %; Platelet Count (auto) 366 10^3/uL (140-450); Red Blood Cells 4.72 10^6/uL (4.5-5.90); Red Cell Distribution Width 16.1 % (11.8-14.3); White Blood Cell 6.2 10^3/uL (4.4-10.8)
[2020-06-19] MEDS: InsuLIN REG 1unit/0.01ml Soln (100units/ml) SC SCH ×3 (05:22→17:05)
[2020-06-19] MEDS: ACCU-CHEK COMFORT CURVE STRIP VI SCH ×3 (05:25→17:06)
[2020-06-19 06:56] LABS: BUN/Creatinine Ratio 20.2; Blood Urea Nitrogen 17 mg/dL (7-18); Calcium 8.7 mg/dL (8.5-10.1); Carbon Dioxide 28 mmol/L (21-32); GFR African American 126 mL/min; GFR Non-African American 104 mL/min; Glucose 171 mg/dL (74-106); Magnesium 1.7 mg/dL (1.6-2.6); Phosphorus 2.7 mg/dL (2.5-4.90)
[2020-06-19 08:32] LABS: Albumin 2.4 g/dL (3.4-5.0)
[2020-06-19 08:35] LABS: Bilirubin, Direct 0.4 mg/dL (0-0.2); Bilirubin, Total 0.8 mg/dL (0.2-1.0); Total Protein 6.9 g/dL (6.4-8.2)
[2020-06-19 08:59] LABS: Anion Gap 9 (5-15); Chloride 101 mmol/L (98-107); Potassium 3.2 mmol/L (3.5-5.1); Sodium 138 mmol/L (136-145)
[2020-06-19] MEDS: PROPOFOL 100 ML IV SCH (09:45)
[2020-06-19] MEDS: POTASSIUM EFFERVESENT TAB 25 MEQ GT SCH (09:48)
[2020-06-19] MEDS: ENOXAPARIN SOD 40 MG/0.4 ML SYRINGE SC SCH ×2 (09:49→22:18)
[2020-06-19] MEDS: SODIUM CHLOR 0.9% PF (SALINE LOCK) 10ML VIAL/SYR IV SCH ×2 (09:49→22:18)
[2020-06-19] MEDS: PANTOPRAZOLE 40 MG/10 ML VIAL INJ IV SCH (09:49)
[2020-06-19] MEDS: AZITHROMYCIN 500MG/ 250ML 250 ML IV SCH (09:49)
[2020-06-19] MEDS: CHOLECALCIFEROL (VITD3) 2,000 UNIT CAP/TAB PO SCH (09:49)
[2020-06-19] MEDS: ZINC SULFATE 220mg CAP or TAB PO SCH (09:49)
[2020-06-19] MEDS: ASCORBIC ACID 1,000 MG TAB PO SCH (09:49)
[2020-06-19] MEDS: ASPirin 81 mg TAB PO SCH (09:49)
[2020-06-19] MEDS: DexAMETHasone SOD PHOS 10MG/1ML VIAL INJ IV SCH (09:53)
[2020-06-19] MEDS: INSULIN LANTUS (GLARGINE) 1 /0.01ml (100units/ml) SC SCH (09:54)
[2020-06-19] MEDS ORDERED: POTASSIUM CHLORIDE 40 MEQ, LIDOCAINE 1% (LOCAL ANESTH.) 4 ML in SODIUM CHL 0.9% 250 ML IV ONE (10:15)
[2020-06-19] MEDS: FUROSEMIDE 40 MG/4 ML VIAL IV SCH (11:00)
[2020-06-19] MEDS: NOREPINEPHRINE 8 MG/250ML KIT 250 ML IV SCH (21:30)
[2020-06-20] VITALS (40 sets, daily range): BP systolic 88–125; BP diastolic 53–88
[2020-06-20] MEDS: InsuLIN REG 1unit/0.01ml Soln (100units/ml) SC SCH ×4 (05:35→16:59)
[2020-06-20] MEDS: ACCU-CHEK COMFORT CURVE STRIP VI SCH ×4 (05:35→17:28)
[2020-06-20] MEDS: PIPERACILLIN-TAZOB 3.375GM 100 ML IV SCH ×4 (05:35→17:28)
[2020-06-20 09:01] LABS: Basophils # (auto) 0.1 10 ^3/uL (0-0.2); Basophils % (auto) 1.1 % (0.0-2.0); Eosinophils # (auto) 0.1 10 ^3/uL (0-0.8); Hematocrit 42.5 % (41.0-53.0); Hemoglobin 13.8 g/dL (13.5-17.5); Lymphocytes # (auto) 2.4 10 ^3/uL (0.4-5.4); Lymphocytes % (auto) 29.3 % (10.0-50.0); Mean Corpuscular Hemoglobin 27.7 pg (28.0-32.0); Mean Corpuscular Hgb Conc. 32.6 g/dL (32.0-36.0); Mean Corpuscular Volume 85.1 fL (80.0-100.0); Monocytes # (auto) 0.8 10 ^3/uL (0-1.3); Monocytes % (auto) 9.6 % (0.0-12.0); Neutrophils # (auto) 4.8 10 ^3/uL (1.6-8.6); Nucleated Red Blood Cells % 0.1 %; Platelet Count (auto) 379 10^3/uL (140-450); Red Cell Distribution Width 15.8 % (11.8-14.3); White Blood Cell 8.2 10^3/uL (4.4-10.8)
[2020-06-20 09:16] LABS: Albumin 2.5 g/dL (3.4-5.0); BUN/Creatinine Ratio 19.4; Calcium 8.5 mg/dL (8.5-10.1); Potassium 3.2 mmol/L (3.5-5.1)
[2020-06-20 09:19] LABS: Bilirubin, Total 0.9 mg/dL (0.2-1.0); Total Protein 6.9 g/dL (6.4-8.2)
[2020-06-20] MEDS: PANTOPRAZOLE 40 MG/10 ML VIAL INJ IV SCH (09:20)
[2020-06-20] MEDS: ENOXAPARIN SOD 40 MG/0.4 ML SYRINGE SC SCH ×2 (09:20→22:06)
[2020-06-20] MEDS: SODIUM CHLOR 0.9% PF (SALINE LOCK) 10ML VIAL/SYR IV SCH (09:20)
[2020-06-20] MEDS: AZITHROMYCIN 500MG/ 250ML 250 ML IV SCH (09:20)
[2020-06-20] MEDS: INSULIN LANTUS (GLARGINE) 1 /0.01ml (100units/ml) SC SCH (09:21)
[2020-06-20] MEDS: ASCORBIC ACID 1,000 MG TAB PO SCH (10:00)
[2020-06-20] MEDS: ASPirin 81 mg TAB PO SCH (10:00)
[2020-06-20] MEDS: POTASSIUM EFFERVESENT TAB 25 MEQ GT SCH (10:00)
[2020-06-20] MEDS: CHOLECALCIFEROL (VITD3) 2,000 UNIT CAP/TAB PO SCH (10:00)
[2020-06-20] MEDS: ZINC SULFATE 220mg CAP or TAB PO SCH (10:00)
[2020-06-20] MEDS: FUROSEMIDE 40 MG/4 ML VIAL IV SCH (11:43)
[2020-06-20] MEDS: POTASSIUM CHL 20MEQ/100ML 100 ML IV SCH ×2 (11:45→14:30)
[2020-06-20] MEDS: NOREPINEPHRINE 8 MG/250ML KIT 250 ML IV SCH (21:30)
[2020-06-21] MEDS: PIPERACILLIN-TAZOB 3.375GM 100 ML IV SCH ×4 (00:03→18:00)
[2020-06-21] MEDS: ACCU-CHEK COMFORT CURVE STRIP VI SCH ×4 (00:03→18:00)
[2020-06-21] MEDS: SODIUM CHLOR 0.9% PF (SALINE LOCK) 10ML VIAL/SYR IV SCH ×3 (00:03→22:00)
[2020-06-21] MEDS: InsuLIN REG 1unit/0.01ml Soln (100units/ml) SC SCH ×4 (01:05→18:00)
[2020-06-21 05:16] VITALS: BP 149/87
[2020-06-21 09:00] VITALS: BP 123/80
[2020-06-21 09:03] LABS: Basophils # (auto) 0.1 10 ^3/uL (0-0.2); Basophils % (auto) 1.2 % (0.0-2.0); Eosinophils # (auto) 0.2 10 ^3/uL (0-0.8); Eosinophils % (auto) 2.5 % (0.0-7.0); Hematocrit 44.1 % (41.0-53.0); Hemoglobin 14.5 g/dL (13.5-17.5); Lymphocytes # (auto) 2.2 10 ^3/uL (0.4-5.4); Lymphocytes % (auto) 26.9 % (10.0-50.0); Mean Corpuscular Hgb Conc. 32.9 g/dL (32.0-36.0); Mean Corpuscular Volume 85.3 fL (80.0-100.0); Monocytes # (auto) 0.8 10 ^3/uL (0-1.3); Monocytes % (auto) 9.7 % (0.0-12.0); Neutrophils # (auto) 4.8 10 ^3/uL (1.6-8.6); Neutrophils % (auto) 59.7 % (37.0-80.0); Nucleated Red Blood Cells % 0.1 %; Platelet Count (auto) 428 10^3/uL (140-450); Red Blood Cells 5.16 10^6/uL (4.5-5.90); Red Cell Distribution Width 16.3 % (11.8-14.3); White Blood Cell 8.1 10^3/uL (4.4-10.8)
[2020-06-21 09:20] LABS: Potassium 3.4 mmol/L (3.5-5.1)
[2020-06-21 09:31] LABS: Albumin 2.6 g/dL (3.4-5.0); BUN/Creatinine Ratio 18.3; Bilirubin, Direct 0.4 mg/dL (0-0.2); Bilirubin, Total 0.9 mg/dL (0.2-1.0); Calcium 9.3 mg/dL (8.5-10.1); Total Protein 7.3 g/dL (6.4-8.2)
[2020-06-21] MEDS: INSULIN LANTUS (GLARGINE) 1 /0.01ml (100units/ml) SC SCH (10:00)
[2020-06-21] MEDS: AZITHROMYCIN 500MG/ 250ML 250 ML IV SCH (10:31)
[2020-06-21] MEDS: ASPirin 81 mg TAB PO SCH (10:32)
[2020-06-21] MEDS: ASCORBIC ACID 1,000 MG TAB PO SCH (10:32)
[2020-06-21] MEDS: PANTOPRAZOLE 40 MG/10 ML VIAL INJ IV SCH (10:32)
[2020-06-21] MEDS: CHOLECALCIFEROL (VITD3) 2,000 UNIT CAP/TAB PO SCH (10:32)
[2020-06-21] MEDS: ZINC SULFATE 220mg CAP or TAB PO SCH (10:32)
[2020-06-21] MEDS: POTASSIUM EFFERVESENT TAB 25 MEQ GT SCH (10:33)
[2020-06-21] MEDS: FUROSEMIDE 40 MG/4 ML VIAL IV SCH (10:33)
[2020-06-21] MEDS: ENOXAPARIN SOD 40 MG/0.4 ML SYRINGE SC SCH (10:33)
[2020-06-21 13:00] VITALS: BP 122/83
[2020-06-21 17:00] VITALS: BP 110/70
[2020-06-21] MEDS ORDERED: INSLANTI SC (19:29)
[2020-06-21] MEDS ORDERED: INSREGI SC (19:29)
[2020-06-21] MEDS ORDERED: POTASSIUM EFFERVESENT TAB 25 MEQ PO ONE (19:30)
[2020-06-21 22:00] VITALS: BP 119/79
[2020-06-22] MEDS: InsuLIN REG 1unit/0.01ml Soln (100units/ml) SC SCH ×4 (00:30→18:00)
[2020-06-22] MEDS: ACCU-CHEK COMFORT CURVE STRIP VI SCH ×5 (00:30→23:43)
[2020-06-22 05:00] VITALS: BP 115/65
[2020-06-22 06:41] LABS: Basophils # (auto) 0.1 10 ^3/uL (0-0.2); Basophils % (auto) 1.4 % (0.0-2.0); Eosinophils # (auto) 0.4 10 ^3/uL (0-0.8); Eosinophils % (auto) 4.4 % (0.0-7.0); Hematocrit 41.3 % (41.0-53.0); Hemoglobin 13.6 g/dL (13.5-17.5); Lymphocytes # (auto) 2.2 10 ^3/uL (0.4-5.4); Lymphocytes % (auto) 25.3 % (10.0-50.0); Mean Corpuscular Hemoglobin 28.3 pg (28.0-32.0); Mean Corpuscular Volume 85.8 fL (80.0-100.0); Monocytes # (auto) 0.9 10 ^3/uL (0-1.3); Monocytes % (auto) 10.4 % (0.0-12.0); Neutrophils % (auto) 58.5 % (37.0-80.0); Platelet Count (auto) 385 10^3/uL (140-450); Red Blood Cells 4.81 10^6/uL (4.5-5.90); Red Cell Distribution Width 16.1 % (11.8-14.3); White Blood Cell 8.5 10^3/uL (4.4-10.8)
[2020-06-22 07:02] LABS: Potassium 3.8 mmol/L (3.5-5.1)
[2020-06-22 07:10] LABS: Albumin 2.6 g/dL (3.4-5.0); BUN/Creatinine Ratio 15.6; Bilirubin, Total 0.7 mg/dL (0.2-1.0); Calcium 9.1 mg/dL (8.5-10.1); Total Protein 7.1 g/dL (6.4-8.2)
[2020-06-22 08:30] VITALS: BP 114/73
[2020-06-22] MEDS: SODIUM CHLOR 0.9% PF (SALINE LOCK) 10ML VIAL/SYR IV SCH ×2 (10:00→22:01)
[2020-06-22] MEDS: POTASSIUM EFFERVESENT TAB 25 MEQ GT SCH (10:47)
[2020-06-22] MEDS: PANTOPRAZOLE 40 MG TAB PO SCH (10:48)
[2020-06-22] MEDS: INSULIN LANTUS (GLARGINE) 1 /0.01ml (100units/ml) SC SCH (11:41)
[2020-06-22 12:30] VITALS: BP 139/90
[2020-06-22 17:00] VITALS: BP 141/83
[2020-06-22 17:34] VITALS: BP 141/83
[2020-06-22 22:00] VITALS: BP 99/63
[2020-06-23] MEDS: InsuLIN REG 1unit/0.01ml Soln (100units/ml) SC SCH ×3 (00:02→10:47)
[2020-06-23 05:00] VITALS: BP 107/66
[2020-06-23] MEDS: ACCU-CHEK COMFORT CURVE STRIP VI SCH ×2 (06:08→10:48)
[2020-06-23 08:30] VITALS: BP 113/46
[2020-06-23] MEDS ORDERED: POTASSIUM EFFERVESENT TAB 25 MEQ PO SCH (10:30)
[2020-06-23] MEDS: SODIUM CHLOR 0.9% PF (SALINE LOCK) 10ML VIAL/SYR IV SCH (10:45)
[2020-06-23] MEDS: PANTOPRAZOLE 40 MG TAB PO SCH (10:45)
[2020-06-23] MEDS: INSULIN LANTUS (GLARGINE) 1 /0.01ml (100units/ml) SC SCH (10:46)
[2020-06-23 12:30] VITALS: BP 118/72
== END 2020-06-23 15:15 | disposition home health service (06) | DRG 720 ==
LOC: ER 18:25 → TELE 18:26 → ICU WEST 06-13 01:32 → TELE-WESTW 06-20 18:00
PROVIDERS: ADMIT Hospitalist; ATTEND Hospitalist
PROC: 5A1955Z Respiratory Ventilation, Greater than 96 Consecutive Hours (ICD-10-PCS; principal; 2020-06-08)
PROC: 0BH17EZ Insertion of Endotracheal Airway into Trachea, Via Natural or Artificial Opening (ICD-10-PCS; 2020-06-08)
PROC: 5A09357 Assistance with Respiratory Ventilation, Less than 24 Consecutive Hours, Continuous Positive Airway Pressure (ICD-10-PCS; 2020-06-08)
PROC: XW033E5 Introduction of Remdesivir Anti-infective into Peripheral Vein, Percutaneous Approach, New Technology Group 5 (ICD-10-PCS; 2020-06-10)
PROC: 02HV33Z Insertion of Infusion Device into Superior Vena Cava, Percutaneous Approach (ICD-10-PCS; 2020-06-11)
DX: A41.9 Sepsis, unspecified organism (principal); U07.1 COVID-19; J96.01 Acute respiratory failure with hypoxia; J96.02 Acute respiratory failure with hypercapnia; I21.4 Non-ST elevation (NSTEMI) myocardial infarction; J12.82 Pneumonia due to coronavirus disease 2019; J98.11 Atelectasis; E11.9 Type 2 diabetes mellitus without complications; E66.01 Morbid (severe) obesity due to excess calories; I10 Essential (primary) hypertension; E87.6 Hypokalemia; E78.5 Hyperlipidemia, unspecified; F17.210 Nicotine dependence, cigarettes, uncomplicated; E87.1 Hypo-osmolality and hyponatremia; I95.9 Hypotension, unspecified; E88.09 Other disorders of plasma-protein metabolism, not elsewhere classified; G93.41 Metabolic encephalopathy; I46.9 Cardiac arrest, cause unspecified; Z68.42 Body mass index [BMI] 45.0-49.9, adult; Z90.49 Acquired absence of other specified parts of digestive tract
CPT/HCPCS: 36415; 36569; 36600; 71045; 71275; 80048; 80053; 80076; 82728; 82805; 82962; 83605; 83735; 83880; 84100; 84484; 85007; 85025; 85027; 85379; 85610; 85730; 86141; 87040; 87070; 87081; 87205; 87426; 87804; 93306; 94002; 94003; 94660; 97110; 97116; 97530; 99291; C9113; G0378; J0330; J1100; J1815; J1885; J2001; J2250; J2405; J2543; J2704; J3480; J3490; J7060

== ENCOUNTER 2022-01-25 15:04 | Inpatient (IN) | payer MEDICAID ==
[~2022-01-25] VITALS: Ht 167.6 cm; Wt 86.3 kg
[~2022-01-25 15:04] MED LIST: INSLANTI SC; INSREGI SC
[2022-01-25 16:15] LABS: Basophils # (auto) 0.1 10 ^3/uL (0-0.2); Basophils % (auto) 0.8 % (0.0-2.0); Eosinophils # (auto) 0.2 10 ^3/uL (0-0.8); Eosinophils % (auto) 2.8 % (0.0-7.0); Hematocrit 40.4 % (41.0-53.0); Hemoglobin 12.9 g/dL (13.5-17.5); Lymphocytes # (auto) 2.9 10 ^3/uL (0.4-5.4); Lymphocytes % (auto) 39.7 % (10.0-50.0); Mean Corpuscular Hemoglobin 27.5 pg (28.0-32.0); Mean Corpuscular Hgb Conc. 31.8 g/dL (32.0-36.0); Mean Corpuscular Volume 86.5 fL (80.0-100.0); Monocytes # (auto) 0.6 10 ^3/uL (0-1.3); Neutrophils # (auto) 3.6 10 ^3/uL (1.6-8.6); Neutrophils % (auto) 48.7 % (37.0-80.0); Nucleated Red Blood Cells % 0.1 %; Red Blood Cells 4.67 10^6/uL (4.5-5.90); Red Cell Distribution Width 15.9 % (11.8-14.3); White Blood Cell 7.4 10^3/uL (4.4-10.8)
[2022-01-25 16:40] LABS: Albumin 3.3 g/dL (3.4-5.0); BUN/Creatinine Ratio 45.5; Calcium 8.5 mg/dL (8.5-10.1); Potassium 3.9 mmol/L (3.5-5.1)
[2022-01-25 16:49] LABS: Bilirubin, Total 0.3 mg/dL (0.2-1.0); Total Protein 6.6 g/dL (6.4-8.2)
[2022-01-25 22:03] LABS: Urine Bacteria NONE SEEN /hpf (None Seen); Urine Blood Negative /uL (Negative); Urine WBC 1 /hpf (0 - 3)
[2022-01-26] MEDS ORDERED: SODIUM CHLORIDE 0.9% 1,000 ML IV ONE (05:15)
[2022-01-26] MEDS ORDERED: NITROGLYCERIN 0.4 MG SL TAB SL PRN (05:15)
[2022-01-26] MEDS ORDERED: MORPHINE SULFATE INJ 2 MG/ml SYRG IV PRN (05:15)
[2022-01-26] MEDS ORDERED: ONDANSETRON HCL 4 MG/2 ML VIAL IV PRN (05:15)
[2022-01-26] MEDS ORDERED: DEXTROSE (50%) 50ML SYRG IV PRN (05:15)
[2022-01-26] MEDS: InsuLIN REG 1unit/0.01ml Soln (100units/ml) SC SCH ×4 (06:39→22:00)
[2022-01-26] MEDS: ACCU-CHEK COMFORT CURVE STRIP VI SCH ×4 (06:40→22:08)
[2022-01-26] MEDS: PANTOPRAZOLE 40 MG TAB PO SCH (09:28)
[2022-01-26] MEDS ORDERED: ASPirin-EC 81 mg tab PO ONE (12:00)
[2022-01-26 12:58] LABS: Cholesterol 123 mg/dL (< 200); HDL Cholesterol 62 mg/dL (40-59); LDL Cholesterol 59 mg/dL (< 100); Triglycerides 70 mg/dL (< 150)
[2022-01-26] MEDS ORDERED: ERGOCALCIFEROL 50,000 UNIT(1.25MG) CAP PO SCH (15:30)
[2022-01-26 17:20] VITALS: BP 91/66
[2022-01-26 17:53] VITALS: BP 91/66
[2022-01-26] MEDS ORDERED: CAR3125T OR (20:16)
[2022-01-26] MEDS ORDERED: TEST1.62 TD (20:16)
[2022-01-26] MEDS ORDERED: APRE30TA PO (20:16)
[2022-01-26] MEDS ORDERED: ATOR20TA PO (20:16)
[2022-01-26] MEDS ORDERED: ASPI-543 PO (20:16)
[2022-01-26] MEDS ORDERED: GABA300C10 PO (20:16)
[2022-01-26] MEDS ORDERED: ERGO1CAP23 PO (20:16)
[2022-01-26] MEDS ORDERED: CALC0.0020 EX (20:16)
[2022-01-26] MEDS ORDERED: FERR325T20 PO (20:16)
[2022-01-26] MEDS ORDERED: CLOB0.055 TOP (20:16)
[2022-01-26] MEDS ORDERED: LISI2.5T47 PO (20:16)
[2022-01-26 21:57] VITALS: BP 102/58
[2022-01-26] MEDS: ATORVASTATIN 20 MG TAB PO SCH (22:09)
[2022-01-27 06:01] VITALS: BP 99/62
[2022-01-27 06:32] LABS: BUN/Creatinine Ratio 25.4; Calcium 8.3 mg/dL (8.5-10.1); Magnesium 1.9 mg/dL (1.6-2.6)
[2022-01-27 06:35] LABS: Basophils # (auto) 0 10 ^3/uL (0-0.2); Basophils % (auto) 0.7 % (0.0-2.0); Eosinophils # (auto) 0.2 10 ^3/uL (0-0.8); Eosinophils % (auto) 3.6 % (0.0-7.0); Hematocrit 39.1 % (41.0-53.0); Hemoglobin 12.6 g/dL (13.5-17.5); Lymphocytes # (auto) 2.7 10 ^3/uL (0.4-5.4); Lymphocytes % (auto) 45.4 % (10.0-50.0); Mean Corpuscular Hemoglobin 27.9 pg (28.0-32.0); Mean Corpuscular Hgb Conc. 32.3 g/dL (32.0-36.0); Mean Corpuscular Volume 86.3 fL (80.0-100.0); Monocytes # (auto) 0.5 10 ^3/uL (0-1.3); Monocytes % (auto) 8.9 % (0.0-12.0); Neutrophils # (auto) 2.5 10 ^3/uL (1.6-8.6); Neutrophils % (auto) 41.4 % (37.0-80.0); Nucleated Red Blood Cells % 0.1 %; Red Blood Cells 4.53 10^6/uL (4.5-5.90)
[2022-01-27] MEDS: InsuLIN REG 1unit/0.01ml Soln (100units/ml) SC SCH ×4 (07:00→21:34)
[2022-01-27] MEDS: ACCU-CHEK COMFORT CURVE STRIP VI SCH ×4 (07:03→21:23)
[2022-01-27 09:12] VITALS: BP 105/66
[2022-01-27] MEDS: PANTOPRAZOLE 40 MG TAB PO SCH (09:44)
[2022-01-27] MEDS: ACETAMINOPHEN 325 MG TAB PO PRN (09:44)
[2022-01-27] MEDS: ASPirin-EC 81 mg tab PO SCH (09:44)
[2022-01-27 13:00] VITALS: BP 113/60
[2022-01-27] MEDS: ATORVASTATIN 20 MG TAB PO SCH (21:24)
[2022-01-27 22:00] VITALS: BP 113/61
[2022-01-28] MEDS: ACETAMINOPHEN 325 MG TAB PO PRN (00:18)
[2022-01-28 05:00] VITALS: BP 97/62
[2022-01-28] MEDS: ACCU-CHEK COMFORT CURVE STRIP VI SCH ×3 (05:58→17:46)
[2022-01-28] MEDS: InsuLIN REG 1unit/0.01ml Soln (100units/ml) SC SCH ×3 (06:13→17:00)
[2022-01-28 09:00] VITALS: BP 103/56
[2022-01-28] MEDS: ASPirin-EC 81 mg tab PO SCH (11:42)
[2022-01-28] MEDS: PANTOPRAZOLE 40 MG TAB PO SCH (11:42)
[2022-01-28 13:00] VITALS: BP 98/57
[2022-01-28 16:23] VITALS: BP 98/57
[2022-01-28 17:06] VITALS: BP 96/58
== END 2022-01-28 19:24 | disposition home or self-care (01) | DRG 198 ==
LOC: ER 15:04 → TELE 01-26 05:12 → TELE-CENTR 01-26 16:49
PROVIDERS: ADMIT Nurse Practitioner; ATTEND Internal Medicine
DX: R07.9 Chest pain, unspecified (principal); I25.2 Old myocardial infarction; E44.0 Moderate protein-calorie malnutrition; I95.9 Hypotension, unspecified; E11.9 Type 2 diabetes mellitus without complications; F17.210 Nicotine dependence, cigarettes, uncomplicated; I10 Essential (primary) hypertension; E66.9 Obesity, unspecified; R00.1 Bradycardia, unspecified; Z20.822 Contact with and (suspected) exposure to COVID-19; Z68.30 Body mass index [BMI] 30.0-30.9, adult; Z98.84 Bariatric surgery status; Z90.49 Acquired absence of other specified parts of digestive tract; Z79.84 Long term (current) use of oral hypoglycemic drugs
CPT/HCPCS: 36415; 70450; 71045; 80048; 80053; 80061; 81001; 82306; 82962; 83036; 83735; 84443; 84484; 85025; 93005; 93306; 96360; G0378; J1815